=== PATIENT | female | born 1950 | race Caucasian/White ===

== ENCOUNTER → 2016-10-16 | Outpatient (CLI) | payer BC ==
[~2016-10-16] MED LIST: ADULT LOW DOSE81 MG PO; ALBUTEROL INH INH; BONIVA150 MG PO; BYSTOLIC 5 MG5 M1 PO; CALCIUM 500 +1 EAC5 PO; CARDIZEM CD240 MG PO; CHLOR-TRIMETON12 MG PO; CLONIDINE PO; COUMADIN 2 MG TA2 M1; COUMADIN 2 MG TA2 M1 PO; FLECAINIDE ACE150 MG PO; HYDROCHLOROTH12.5 MG PO; LISINOPRIL40 MG PO; LOSARTAN-HCTZ1 EAC1 PO; MULTIVITAMINS PO; NOLVADEX20 MG PO; ONE DAILY MULT1 EAC1 PO; PERCOCET 10-321 EACH PO; PERCOCET 7.5-31 EACH; PHENERGAN 25 MG25 M1; PREDNISONE 20 M20 MG PO; PROAIR HFA8.5 GM IH; SYMBICORT160 MCG/4. PO; VENTOLIN HFA 1818 GM PO; VENTOLIN17 GM INH; VITAMIN D31000 UNI1 PO; XARELTO10 MG PO; ZPAK PO
== END ==
LOC: RAD 01:31
DX: Z12.31 Encounter for screening mammogram for malignant neoplasm of breast (principal)

== ENCOUNTER → 2017-10-11 | Outpatient (CLI) | payer BC, OTHER | LOC: RAD 01:28 | DX: Z12.31 Encounter for screening mammogram for malignant neoplasm of breast (principal); Z90.12 Acquired absence of left breast and nipple ==

== ENCOUNTER → 2019-10-26 | Outpatient (CLI) | payer BC, OTHER | LOC: RAD 08:22 | PROVIDERS: ATTEND Internal Medicine Hematology & Oncology | DX: Z12.31 Encounter for screening mammogram for malignant neoplasm of breast (principal) ==

== ENCOUNTER → 2021-01-03 | Outpatient (CLI) | payer BC | LOC: BC 14:48 | PROVIDERS: ATTEND Internal Medicine Hematology & Oncology | DX: Z12.31 Encounter for screening mammogram for malignant neoplasm of breast (principal) ==

== ENCOUNTER → 2021-04-24 | Outpatient (CLI) | payer BC | LOC: NUC 10:01 | PROVIDERS: ATTEND Internal Medicine | DX: M81.0 Age-related osteoporosis without current pathological fracture (principal) ==